=== PATIENT | female | born 2000 | race Native Hawaiian/Other Pacific Islander ===

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

== ENCOUNTER 2021-10-22 11:21 | Emergency (ER) | payer BC ==
[2021-10-22] MEDS ORDERED: methylPREDNISolone Sod Succinate 125 MG/2 ML INJ IM ONE (11:44)
[2021-10-22] MEDS ORDERED: FAMOTIDINE 20 MG TAB PO ONE (11:45)
[2021-10-22] MEDS ORDERED: diphenhydrAMINE 25 MG CAP PO ONE (11:45)
--- NOTE | 2021-10-22 12:15 | Emergency Department Report ---
- General Chief complaint: Skin Rash Stated complaint: HIVES Time Seen by Provider: 10/22/21 11:29 Source: patient Mode of arrival: Ambulatory Limitations: No Limitations - History of Present Illness Initial comments: 20 yo female presents to ed for evaluation of worsening rash since Monday. She states that she notified rash to her bilateral arms then it spread to her abdomen and bilateral thighs. She states that rash is pruritic but denies pain. She denies fever, joint pain, fatigue, weight loss, headaches, or swollen lymph nodes. MD complaint: rash -: Gradual, days(s) (4) Location: LUE, RUE, L hand, R hand, LLE, RLE Severity: moderate Severity scale (0 -10): 0 Associated symptoms: itching Treatments Prior to Arrival: none - Related Data Previous Rx's Medication Instructions Recorded Last Taken Type Albuterol Sulfate [Proair 90 mcg IH Q4HR PRN #2 aer.pow.ba 11/05/16 Unknown Rx Respiclick] Benzonatate [Tessalon Perles] 100 mg PO Q8HR PRN #30 capsule 11/05/16 Unknown Rx Fluticasone [Flonase] 1 spray NS QDAY #1 bottle 11/05/16 Unknown Rx Ibuprofen [Motrin] 600 mg PO Q8H PRN #30 tablet 11/05/16 Unknown Rx Prednisone [predniSONE 10 mg 10 mg PO .TAPER #1 pack 10/22/21 Unknown Rx (6-Day Pack, 21 Tabs)] hydrOXYzine PAMOATE [Vistaril] 25 mg PO Q6HR PRN #21 capsule 10/22/21 Unknown Rx Allergies Allergy/AdvReac Type Severity Reaction Status Date / Time No Known Allergies Allergy Verified 10/22/21 12:09 Abscess Boil HPI - HPI Chief Complaint: Skin Rash Stated Complaint: HIVES Time Seen by Provider: 10/22/21 11:29 Home Medications: Previous Rx's Medication Instructions Recorded Last Taken Type Albuterol Sulfate [Proair 90 mcg IH Q4HR PRN #2 aer.pow.ba 11/05/16 Unknown Rx Respiclick] Benzonatate [Tessalon Perles] 100 mg PO Q8HR PRN #30 capsule 11/05/16 Unknown Rx Fluticasone [Flonase] 1 spray NS QDAY #1 bottle 11/05/16 Unknown Rx Ibuprofen [Motrin] 600 mg PO Q8H PRN #30 tablet 11/05/16 Unknown Rx Prednisone [predniSONE 10 mg 10 mg PO .TAPER #1 pack 10/22/21 Unknown Rx (6-Day Pack, 21 Tabs)] hydrOXYzine PAMOATE [Vistaril] 25 mg PO Q6HR PRN #21 capsule 10/22/21 Unknown Rx Allergies/Adverse Reactions: Allergies Allergy/AdvReac Type Severity Reaction Status Date / Time No Known Allergies Allergy Verified 10/22/21 12:09 ED Review of Systems ROS: Stated complaint: HIVES Other details as noted in HPI Comment: All other systems reviewed and negative Constitutional: denies: chills, fever, malaise, weakness Eyes: denies: eye pain ENT: denies: throat pain, congestion Respiratory: denies: shortness of breath Cardiovascular: denies: chest pain, palpitations Gastrointestinal: denies: abdominal pain, nausea, vomiting Musculoskeletal: denies: back pain Skin: rash Neurological: denies: headache, weakness ED Past Medical Hx - Past Medical History Additional medical history: BRONCHITIS - Social History Smoking Status: Never Smoker Substance Use Type: None - Medications Home Medications: Home Medications Medication Instructions Recorded Confirmed Last Taken Type Albuterol Sulfate [Proair 90 mcg IH Q4HR PRN #2 aer.pow.ba 11/05/16 10/22/21 Unknown Rx Respiclick] Benzonatate [Tessalon Perles] 100 mg PO Q8HR PRN #30 capsule 11/05/16 10/22/21 Unknown Rx Fluticasone [Flonase] 1 spray NS QDAY #1 bottle 11/05/16 10/22/21 Unknown Rx Ibuprofen [Motrin] 600 mg PO Q8H PRN #30 tablet 11/05/16 10/22/21 Unknown Rx Prednisone [predniSONE 10 mg 10 mg PO .TAPER #1 pack 10/22/21 Unknown Rx (6-Day Pack, 21 Tabs)] hydrOXYzine PAMOATE [Vistaril] 25 mg PO Q6HR PRN #21 capsule 10/22/21 Unknown Rx ED Physical Exam - General Limitations: No Limitations General appearance: alert, in no apparent distress - Head Head exam: Present: atraumatic, normocephalic - Eye Eye exam: Present: normal appearance. Absent: scleral icterus, conjunctival injection - ENT ENT exam: Present: normal orophraynx - Neck Neck exam: Present: normal inspection. Absent: lymphadenopathy - Respiratory Respiratory exam: Absent: respiratory distress - Cardiovascular Cardiovascular Exam: Present: regular rate - GI/Abdominal GI/Abdominal exam: Present: soft. Absent: distended, tenderness - Extremities Exam Extremities exam: Present: normal capillary refill. Absent: normal inspection (erythematous, pruritic rash noted to bilateral hands, arms, and thighs), tenderness, pedal edema, joint swelling, calf tenderness - Back Exam Back exam: Present: normal inspection. Absent: CVA tenderness (R), CVA tenderness (L) - Neurological Exam Neurological exam: Present: alert, oriented X3, normal gait - Psychiatric Psychiatric exam: Present: normal affect, normal mood - Skin Skin exam: Present: warm, dry, intact, normal color, rash ED Course Vital Signs 10/22/21 10/22/21 10/22/21 11:24 12:05 13:22 Temperature 98.7 F 98.7 F 98.2 F Pulse Rate 89 85 73 Respiratory 20 20 20 Rate Blood Pressure 137/80 Blood Pressure 124/89 124/76 [Right] O2 Sat by Pulse 97 99 100 Oximetry - Reevaluation(s) Reevaluation #1: 10/22/21 12:39 Rash and itching slightly improved. ED Medical Decision Making - Medical Decision Making 20 yo female presents to ed for evaluation of worsening rash since Monday. She states that she notified rash to her bilateral arms then it spread to her abdomen and bilateral thighs. She states that rash is pruritic but denies pain. She denies fever, joint pain, fatigue, weight loss, headaches, or swollen lymph nodes. Exam consistent with contact dermatitis. Patient treated with solumedrol, benadryl and pepcid in ed and will be discharged home with prednisone pack along with vistaril as needed for itching. She was advised to take medications as prescribed and follow up with dermatology for further evaluation and management. She verbalized understanding of and agreement with plan of care. Critical care attestation.: If time is entered above; I have spent that time in minutes in the direct care of this critically ill patient, excluding procedure time. ED Disposition Clinical Impression: Contact dermatitis Qualifiers: Contact dermatitis type: unspecified Contact dermatitis trigger: unspecified trigger Qualified Code(s): L25.9 - Unspecified contact dermatitis, unspecified cause Disposition: 01 HOME / SELF CARE / HOMELESS Is pt being admited?: No Does the pt Need Aspirin: No Condition: Stable Instructions: Contact Dermatitis, [id number] Additional Instructions: Take medications as prescribed. Follow up with dermatology for further evaluation and management. Prescriptions: Prednisone [predniSONE 10 mg (6-Day Pack, 21 Tabs)] 10 mg PO .TAPER #1 pack hydrOXYzine PAMOATE [Vistaril] 25 mg PO Q6HR PRN #21 capsule PRN Reason: Itching Referrals: MELINA GEIGER MD [Staff Physician] - 3-5 Days Time of Disposition: 12:42
[2021-10-22 13:23] VITALS: BP 124/76
== END 2021-10-22 13:22 | disposition home or self-care (01) ==
LOC: ED 11:21
DX: L25.9 Unspecified contact dermatitis, unspecified cause (principal); Z79.899 Other long term (current) drug therapy
CPT/HCPCS: 96372; 99282; J2930